=== PATIENT | male | born 1975 | race Caucasian/White ===

== ENCOUNTER 2019-08-11 07:45 | Emergency (ER) | payer BC ==
[~2019-08-11] VITALS: Ht 175.3 cm; Wt 100.0 kg
[2019-08-11 08:00] VITALS: BP 153/99
[2019-08-11] MEDS ORDERED: IBUP-2030 PO (08:03)
[2019-08-11] MEDS ORDERED: IBUPROFEN 600MG TABLET PO ONE (08:15)
== END 2019-08-11 08:24 | disposition home or self-care (01) ==
LOC: ER 07:45
DX: M25.561 Pain in right knee (principal)
CPT/HCPCS: 99282